=== PATIENT | male | born 1985 | race Caucasian/White ===

== ENCOUNTER 2022-10-25 10:41 | Emergency (ER) | payer OTHER ==
[2022-10-25 11:36] LABS: BASOPHILS # (AUTO) 0.1 10^3/uL (0.0-0.1); BASOPHILS % (AUTO) 1.1 %; EOSINOPHILS # (AUTO) 0.1 10^3/uL (0.0-0.7); EOSINOPHILS % (AUTO) 2.1 %; HCT - HEMATOCRIT 42.4 % (42.0-52.0); HGB - HEMOGLOBIN 14.2 g/dL (14.0-18.0); LYMPHOCYTES # (AUTO) 1.7 10^3/uL (1.5-3.5); LYMPHOCYTES % (AUTO) 31.9 %; MEAN CORPUSCULAR HEMOGLOBIN 31.4 pg (27.0-31.0); MEAN CORPUSCULAR HGB CONC 33.5 g/dL (32.0-36.0); MEAN CORPUSCULAR VOLUME 93.8 fL (80.0-94.0); MEAN PLATELET VOLUME 9.7 fL (7.4-11.4); MONOCYTES # (AUTO) 0.5 10^3/uL (0.0-1.0); MONOCYTES % (AUTO) 8.8 %; NEUTROPHILS % (AUTO) 55.9 %; PLT - PLATELET COUNT 299 10^3/uL (130-450); RED BLOOD COUNT 4.52 10^6/uL (4.70-6.10); RED CELL DISTRIBUTION WIDTH 12.3 % (12.0-15.0); WHITE BLOOD COUNT 5.3 x10^3/uL (4.8-10.8)
--- NOTE | 2022-10-25 11:36 | XRAY Report ---
PROCEDURE: Chest 1 View X-Ray INDICATIONS: Chest Pain TECHNIQUE: One view of the chest was acquired. COMPARISON: None. FINDINGS: Surgical changes and devices: None. Lungs and pleura: No pleural effusions or pneumothorax. Lungs are clear. Mediastinum: Mediastinal contours appear normal. Heart size is normal. Bones and chest wall: No suspicious bony lesions. Overlying soft tissues appear unremarkable. IMPRESSION: No acute cardiopulmonary process. Reviewed by: Jerardo Oconnor on 10/25/2022 11:35 AM PDT Approved by: Jerardo Oconnor on 10/25/2022 11:35 AM PDT Station ID: [id number]
[2022-10-25 11:49] LABS: ALBUMIN 4.7 g/dL (3.2-5.5); ALBUMIN/GLOBULIN RATIO 1.6 (1.0-2.2); BILIRUBIN,TOTAL 1.2 mg/dL (0.2-1.0); CALCIUM 9.4 mg/dL (8.5-10.3); CREATININE 0.7 mg/dL (0.6-1.2); POTASSIUM 4.4 mmol/L (3.5-5.0); TOTAL PROTEIN 7.7 g/dL (6.7-8.2)
--- NOTE | 2022-10-25 12:25 | ED Physician Documentation ---
History of Present Illness - Stated complaint Stated Complaint: CHEST PX,SWELLING - Chief complaint Chief Complaint: Cardiac - Additonal information Additional information: 36-year-old male presents emergency department for evaluation of substernal chest pain and chest pressure. Reports that he has began to have palpitations especially when laying in bed at night. Denies any exertional chest pain. No shortness of air. He has had no hemoptysis. His is here in the emergency department also seeking care for concerns of respiratory symptoms. Patient reports he has been stressed a lot recently [place]. He does have a history of hypertension for which she was previously on lisinopril but transition to losartan several weeks ago when he developed some generalized body swelling. That has fully resolved. Non-smoker. Review of Systems Constitutional: denies: Fever Cardiac: reports: Chest pain / pressure, Palpitations. denies: Pedal edema, C [place] pain Respiratory: reports: Reviewed and negative GI: reports: Reviewed and negative : reports: Reviewed and negative Skin: reports: Reviewed and negative Musculoskeletal: reports: Reviewed and negative Neurologic: reports: Reviewed and negative PD PAST MEDICAL HISTORY - Present Medications Home Medications: Ambulatory Orders Medication Instructions Recorded Confirmed Atorvastatin [Lipitor] 20 mg PO DAILY 10/25/22 10/25/22 FLUoxetine [PROzac] 10 mg PO DAILY 10/25/22 10/25/22 Losartan [Cozaar] 50 mg PO DAILY 10/25/22 10/25/22 - Allergies Allergies/Adverse Reactions: Allergies Allergy/AdvReac Type Severity Reaction Status Date / Time No Known Drug Allergies Allergy Verified 10/25/22 11:11 PD ED PE NORMAL - General General: Alert and oriented X 3, No acute distress - HEENT HEENT: Atraumatic - Neck Neck: Supple, no meningeal sign, No JVD - Cardiac Cardiac: RRR, No murmur, No gallop - Respiratory Respiratory: No respiratory distress, Clear bilaterally - Abdomen Abdomen: Normal bowel sounds, Soft, Non tender, Non distended - Back Back: No CVA TTP, No spinal TTP - Derm Derm: Normal color, Warm and dry, No rash - Extremities Extremities: No deformity - Neuro Neuro: Alert and oriented X 3, picture framer 2-12 intact Eye Opening: Spontaneous Motor: Obeys Commands Verbal: Oriented GCS Score: 15 Results - Vitals Vitals: Vital Signs - 24 hr 10/25/22 10/25/22 10/25/22 11:05 12:10 12:18 Temperature 36.9 C Heart Rate 73 89 Respiratory 16 18 18 Rate Blood Pressure 144/98 H 149/90 H O2 Saturation 100 99 Oxygen O2 Source Room air - EKG (time done) 1113 EKG releavant findings:: EKG personally interpreted by author of this note. Relevant findings are: Rate: Rate (enter#) (55) Rhythm: NSR [place]: Normal Intervals: Normal OR QRS: Normal Ischemia: Normal ST segments Compare to prior EKG: Old EKG unavailable Computer interpretation: Agree with computer - Labs Labs: Laboratory Tests 10/25/22 10/25/22 10/25/22 11:31 11:31 11:31 WBC 5.3 RBC 4.52 L Hgb 14.2 Hct 42.4 MCV 93.8 MCH 31.4 H MCHC 33.5 RDW 12.3 Plt Count 299 MPV 9.7 Neut # (Auto) 3.0 Lymph # (Auto) 1.7 [place] # (Auto) 0.5 Eos # (Auto) 0.1 Baso # (Auto) 0.1 Absolute Nucleated RBC 0.00 Nucleated RBC % 0.0 Sodium 138 Potassium 4.4 Chloride 102 Carbon Dioxide 28 Anion Gap 8.0 BUN 8 Creatinine 0.7 Estimated GFR (MDRD) 127 Glucose 108 H Calcium 9.4 Total Bilirubin 1.2 H AST 25 ALT 38 Alkaline Phosphatase 52 Troponin I High Sens < 2.3 L Total Protein 7.7 Albumin 4.7 Globulin 3.0 Albumin/Globulin Ratio 1.6 Lipase 31 - Rads (name of study) cxr Relevant Findings:: Final report received (No acute cardiopulmonary process) PD Medical Decision Making - ED course Complexity details: reviewed results, considered differential, d/w patient ED course: 36-year-old male checks in emergency department for evaluation of about 2 weeks intermittent substernal chest pain chest pressure with associated palpitations felt mostly at night when laying in bed. Said no cough or fevers. No syncope. Symptoms are not exertional. He was recently transition from lisinopril to losartan for management of hypertension after he developed some generalized body swelling. He is a non-smoker. On exam he appears remarkably well. Cardiopulmonary auscultation was without acute findings. While on the monitor in the room though for brief period of time, there was no ectopy noted. An EKG completed in the emergency department is without any ischemic findings. CBC electrolytes and troponin as interpreted by myself are without acute findings including no anemia, electrolyte imbalance. His troponin is also negative. Chest x-ray is without findings suggesting pneumonia, pleural effusion cardiomegaly. I discussed with the patient that the palpitations especially when present nocturnal and at night are typically benign. He may benefit from a Holter monitor for evaluation of arrhythmia or PVCs. He is scheduled to see a new PCP within the next month. Patient also admits to worsening anxiety since [place] and worry about his 's health. He does take floxetine. Patient feels better knowing that his labs and imaging and EKG are normal. He is encouraged to follow close with PCP. The usual emergent return precautions were discussed for worsening symptoms. Departure - Departure Disposition: 01 Home, Self Care Clinical Impression: Palpitations Chest pain Qualifiers: Chest pain type: unspecified Qualified Code(s): R07.9 - Chest pain, unspecified Condition: Stable Record reviewed to determine appropriate education?: Yes Comments: Aleksey was seen today in the emergency department because for the last several weeks you have been having some chest pain especially at night when laying full flat as well as some palpitations. While here in the emergency department your EKG was entirely normal. Your chest x-ray also showed no worrisome findings. Your CBC and electrolytes today were all essentially normal. Sometimes anxiety can cause your symptoms but I do recommend you follow closely with a primary care doctor. You may benefit from an outpatient Holter monitor or referral for an echocardiogram. Return to the emergency department should you develop any fainting episodes, have sudden severe chest pain or shortness of air.
[2022-10-25 12:43] VITALS: BP 131/87
== END 2022-10-25 12:43 | disposition home or self-care (01) ==
LOC: ED 10:41
DX: R07.89 Other chest pain (principal); R00.2 Palpitations
CPT/HCPCS: 36415; 80053; 83690; 84484; 85025; 93005; 99283; 99284

== ENCOUNTER 2022-12-13 10:05 | Outpatient (CLI) | payer OTHER ==
--- NOTE | 2022-12-13 10:45 | Sleep Patient Instructions ---
Sleep Center Visit Summary - Patient Visit Information Reason for Visit: Initial consult for evaluation of sleep disordered breathing and other sleep issues. - Patient Instructions Instructions Attached: Sleep Study, Sleep Clinic Visit, Sleep Study Home Monitor Additional Instructions: You will be completing a sleep study, either an in-lab polysomnography (PSG) or home sleep study (HST). You will follow-up in the sleep care office after the sleep study is completed to hear the results and talk about therapy, if needed. You will be called by our office staff to schedule this appointment, but you may contact us with any questions. - Clinic Information Contact: [facility] [address] [place] [email or web address] T: [phone]
--- NOTE | 2022-12-13 10:49 | SLEEP CARE CONSULTATION ---
Information from patient questionnaire entered by Nikko Godfrey. I have reviewed and concur with the information entered by Nikko Godfrey. This document represents the service I personally performed and the decisions made by me, Karon Finney ARNP. History of Present Illness Service Date and Time: 12/13/2022 1020 Reason for Visit: New patient Chief Complaint: reports: Snoring, Excessive daytime sleepiness Date of Onset: 10YRS Usual bedtime: 7PM Time it takes to fall asleep: 15MIN Snores at night: Yes Observed to quit breathing while asleep: No (not sure - notes that he jolts awake) Sleeps alone due to snoring: No Number of times waking at night: 3-5 Reasons for waking at night: reports: Snoring, Bathroom Toss, Turn, or Twitch while sleeping: Yes Recalls having dreams: Yes Usually gets out of bed at: 530AM Feels refreshed in the morning: No Morning headache: No Sleepy or fatigued during the day: Yes Ever fallen asleep while driving: No Takes day naps: Yes (40 mins when working, works at home; naps make him feel lethargic) Dreams during day naps: No Prior sleep studies: No Additional HPI information: I had the pleasure of seeing DANIEL ZAMORA today regarding the possibility of him having a sleep disorder. His current complaints are snoring and excessive daytime sleepiness. He states he is constantly a little tired. He does not wake up feeling refreshed. He has woke up with a "jolt" and possibly a gasp for air. He does sleep with head elevated because it seems to reduce snoring. His father has sleep apnea and uses a CPAP. 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 Patient is and lives in . Have you smoked in the past 12 months: No Years of smokin Quit date: 2014 Alcohol use: Yes Alcohol amount and frequency: 2BEERS PER WEEK Caffeine use: Yes Caffeine amount and frequency: 3CUPS COFFEE, daily Family History Family history of sleep disordered breathing: Yes Family Hx Sleep Apnea: Father: Snoring, Sleep apnea - Treated Allergies and Home Medications Known drug allergies: No Drug allergies reviewed: Yes Home medication list reviewed: Yes (see updated list in EMR) Allergy and home medication list: Allergies No Known Drug Allergies Allergy (Verified 12/12/22 13:42) Review of Systems Weight gain over past 5 years: regained 30 Weight loss over past 5 years: 50-60 Cardiovascular: reports: high blood pressure, palpitations Gastrointestinal: reports: heartburn Neurological: denies: headaches, head trauma Psychiatric: reports: anxiety Ear/Nose/Throat: reports: wisdom teeth removed. denies: injury to nose, tonsillectomy Musculoskeletal: reports: back pain Immunologic: denies: allergies to food or environment Physical Exam Vital signs obtained and entered by: NIKKO Sandhu MA Blood Pressure: 110/64 (LEFT ARM) Cuff size: regular Heart Rate: 58 O2 Saturation: 98 Height: 5 ft 11 in Weight: 207 lb 3.2 oz Body Mass Index: 28.9 BMI Classification: Overweight Neck circumference: 15.75 Mouth and throat: normal Soft palate: long Hard palate: normal Uvula: normal Uvula visualization: 100% Mallampati Class I Tongue: enlarged in size with teeth [place] on lateral edges Tonsils: small Neck: normal w/o lymphadenopathy or thyromegaly Heart: regular rate and rhythm Lungs: clear bilaterally Impression and Plan 1. Suspected Obstructive Sleep Apnea-Hypopnea Syndrome, as suggested by a history of loud and irregular snoring, gasping or choking in sleep, unrefreshed sleep, cognitive impairment, and excessive daytime sleepiness. Narrow oropharynx and obesity are common predisposing factors for obstructive sleep apnea-hypopnea syndrome. I recommend proceeding to polysomnography to confirm the diagnosis and to assess severity. If the patient has significant sleep disordered breathing, a manual CPAP titration study will also be performed to find the optimal treatment pressure. I informed the patient of what the sleep studies involve and after some discussion, obtained agreement to proceed. The pathophysiology of obstructive sleep apnea-hypopnea syndrome was discussed with the patient and health risks of cardiovascular and cerebrovascular disease if not treated. Risks of drowsy driving discussed in detail and patient advised to avoid long distance driving and to harness puller at the first sign of drowsiness. Patient agreed to plan. * Schedule polysomnography * Avoid long distance driving or driving when feeling sleepy. * Avoid alcohol, sedative and muscle relaxant around bedtime. * Attempt to lose weight. * Review instructions provided by trained office staff on how to prepare for the sleep study. * Return for follow-up after sleep study completed. Counseling Topics: Weight loss health impact Visit Type: In Office Time Spent with Patient (minutes): 30 Provider Statement: I spent 100% of the Face to Face Visit with the patient with greater than 50% spent counseling the patient and coordination of care.
[2022-12-13 10:53] VITALS: BP 110/64
== END 2022-12-13 10:06 | disposition home or self-care (01) ==
LOC: SC 10:05
PROVIDERS: ATTEND Nurse Practitioner Family
DX: G47.10 Hypersomnia, unspecified (principal); R06.83 Snoring; R06.81 Apnea, not elsewhere classified; R41.89 Other symptoms and signs involving cognitive functions and awareness; G47.8 Other sleep disorders; E66.3 Overweight; Z68.28 Body mass index [BMI] 28.0-28.9, adult; Z87.891 Personal history of nicotine dependence
CPT/HCPCS: 99203; 99212

== ENCOUNTER 2023-04-20 16:14 | Outpatient (CLI) | payer OTHER ==
--- NOTE | 2023-04-20 16:06 | SLEEP CARE CONSULTATION ---
Information from patient questionnaire entered by Nikko Godfrey. I have reviewed and concur with the information entered by Nikko Godfrey. This document represents the service I personally performed and the decisions made by me, Karon Finney ARNP. History of Present Illness Service Date and Time: 04/20/2023 1540 Previous diagnosis: Moderate, Obstructive Sleep Apnea-Hypopnea Syndrome AHI: 18.5 (02/09/23) Reason for follow up: first compliance Accompanied by: (RESMED) Equipment type: CPAP (ResMed Airsense 11, 02/2023) Equipment obtained from: [employer] (getting supplies) Mask style: Nasal Mask brand: [employer] (Eson 2) Backup mask available: No (will keep old mask when replaced) Last cushion change: 1 week Prior sleep studies: No Type of Sleep Study: Home sleep study (COMPLETED 02/09/23) HPI additional information: DANIEL ZAMORA was diagnosed to have moderate, AHI 18.5, obstructive sleep apnea-hypopnea syndrome and returns via video appointment today for CPAP therapy first compliance follow-up. Sleep Study - Results Type of Sleep Study: Home sleep study (COMPLETED 02/09/23) Prior sleep studies: No CPAP Compliance Data - Data Reviewed with Patient Average duration of nightly device use: 9 HRS 16 MINS Compliance rate %: 100 (03/09/23-04/07/23; 30/30 days used) Current pressure setting (cmH2O): 4-15 (median 6.8, avg 9.8, max 11.7) Average residual AHI: 1.5 Central apnea: 0.7 Obstructive apnea: 0.2 Average large leak: 5.9 L/min Subjective Patient concerns: reports: condensation in mask/hose (occasionally). denies: aerophagia, mask discomfort, air blowing in eyes, mask leak noise, nasal congestion, dry mouth, nose, throat, epistaxis Observed to snore while using device: No Current pressure setting perceived as: comfortable On therapy, patient: reports: sleeping better, awakening more refreshed, being more awake and alert during the day, more rested overall. denies: drowsiness while driving Initial [place] Sleepiness Scale score: 7 (12/13/22) Current [place] Sleepiness Scale score: 3 (04/20/23) Allergies and Home Medications Known drug allergies: No Drug allergies reviewed: Yes Home medication list reviewed: Yes (no changes) Allergy and home medication list: Allergies No Known Drug Allergies Allergy (Verified 04/19/23 14:20) Review of Systems Review of systems same as previous: Yes (NO CHANGE) Physical Exam Vital signs obtained and entered by: NIKKO Sandhu MA Height: 5 ft 11 in (PER PT) Weight: 207 lb (PER PT) Body Mass Index: 28.8 BMI Classification: Overweight Impression and Plan 1. Obstructive Sleep Apnea-Hypopnea Syndrome, moderate, with good treatment compliance and good apnea control. On CPAP therapy, the patient has better sleep quality and is more rested overall. Patient has significant improvement of their sleep apnea and is satisfied with current CPAP therapy. He has had occasional condensation around the seal of the mask. We discussed ways to reduce condensation and he voiced understanding. The patients pressure will be changed to autoCPAP 9-12 cmH20 to reflect pressure being used. Patient advised to contact me if pressure change is uncomfortable so that it can be adjusted. Goals for apnea control discussed. Patient's apnea severity and rationale for treatment to reduce apnea, improve sleep quality and reduce cardiovascular and cerebrovascular events was reviewed. I also reviewed the benefit of consistent device use of CPAP for hypertension and anxiety. 2. Overweight, unspecified. Currently patients BMI is 28.8. Obesity increases the risk of apnea, CPAP pressure requirements and overall health risks especially cardiovascular and diabetes. Thus patient is advised to lose weight. * Change auto CPAP pressure to 9-12 cmH2O * Notify me if snoring with mask or feeling that the pressure is too much or too little * Attempt to lose weight * Call this office if any problems using CPAP * Return for follow up in 1-2 months, or sooner if concerns arise Counseling Topics: Spare mask, Weight loss health impact Follow up with Sleep Care in: 1-2 months Visit Type: Telehealth Video Video Type: Doximity Patient Location: Home Location of Provider: Office Patient agrees and consents to this telehealth visit type: Yes Patient agrees to have their insurance billed: Yes Time Spent with Patient (minutes): 15 Provider Statement: I spent 100% of the Telehealth Video Call with the patient with greater than 50% spent counseling the patient and coordination of care.
== END 2023-04-20 16:15 | disposition home or self-care (01) ==
LOC: SC 16:14
PROVIDERS: ATTEND Nurse Practitioner Family
DX: G47.33 Obstructive sleep apnea (adult) (pediatric) (principal); E66.3 Overweight; Z68.28 Body mass index [BMI] 28.0-28.9, adult
CPT/HCPCS: 99212

== ENCOUNTER 2023-09-06 15:53 | Outpatient (CLI) | payer OTHER ==
--- NOTE | 2023-09-06 15:45 | SLEEP CARE CONSULTATION ---
Information from patient questionnaire entered by Nikko Godfrey. I have reviewed and concur with the information entered by Nikko Godfrey. This document represents the service I personally performed and the decisions made by , Karon Finney ARNP. History of Present Illness Service Date and Time: 09/06/2023 1520 Previous diagnosis: Moderate, Obstructive Sleep Apnea-Hypopnea Syndrome AHI: 18.5 (02/09/23) Reason for follow up: other (3 MONTH F/U) Equipment type: CPAP (ResMed Airsense 11, 02/2023) Equipment obtained from: [employer] ([employer]) Mask style: Nasal (Eson 2, med cushion) Backup mask available: Yes Last cushion change: 1 week Prior sleep studies: No Type of Sleep Study: Home sleep study (COMPLETED 02/09/23) HPI additional information: DANIEL ZAMORA was diagnosed to have moderate, AHI 18.5, obstructive sleep concrete pourer ea-hypopnea syndrome and returns via video appointment today for CPAP therapy three month follow-up. Sleep Study - Results Type of Sleep Study: Home sleep study (COMPLETED 02/09/23) Prior sleep studies: No CPAP Compliance Data - Data Reviewed with Patient Average duration of nightly device use: 9 HRS 11 MINS Compliance rate %: 100 (07/06/23-09/03/23; 60/60 days used) Current pressure setting (cmH2O): 9-12 Average residual AHI: 1.0 Central apnea: 0.5 Obstructive apnea: 0.2 Hypopnea: 0.3 Average large leak: 8.5 L/min Subjective Patient concerns: reports: mask leak noise (sometimes, just needs adjusting). denies: aerophagia, mask discomfort, air blowing in eyes, condensation in mask/hose, nasal congestion, dry mouth, nose, throat, epistaxis Observed to snore while using device: No Current pressure setting perceived as: comfortable On therapy, patient: reports: sleeping better, awakening more refreshed, being more awake and alert during the day, more rested overall. denies: drowsiness while driving Initial [place] Sleepiness Scale score: 7 (12/13/22) Current [place] Sleepiness Scale score: 4 (09/06/23) Allergies and Home Medications Known drug allergies: No Drug allergies reviewed: Yes Home medication list reviewed: Yes (no changes) Allergy and home medication list: Allergies No Known Drug Allergies Allergy (Verified 09/04/23 11:23) Review of Systems Review of systems same as previous: Yes (NO CHANGE) Physical Exam Vital signs obtained and entered by: NIKKO Sandhu MA Height: 5 ft 11 in (PER PT) Weight: 200 lb (PER PT) Body Mass Index: 27.8 BMI Classification: Overweight Impression and Plan 1. Obstructive Sleep Apnea-Hypopnea Syndrome, moderate, with good treatment compliance and good apnea control. On CPAP therapy, the patient has better sleep quality and is more rested overall. Patient has significant improvement of their sleep apnea and is satisfied with current CPAP therapy. Patient denies problems with oral dryness, nasal congestion, epistaxis, skin irritation or aerophagia. Patient's apnea severity and rationale for treatment to reduce apnea, improve sleep quality and reduce cardiovascular and cerebrovascular event s was reviewed. I also reviewed the benefit of consistent device use of CPAP for hypertension, anxiety. 2. Overweight, unspecified. Currently patients BMI is 27.8. Obesity increases the risk of apnea, CPAP pressure requirements and overall health risks especially cardiovascular and diabetes. Thus patient is advised to lose weight. * Continue auto CPAP pressure at 9-12 cmH2O * Notify me if snoring with mask or feeling that the pressure is too much or too little * Attempt to lose weight * Call this office if any problems using CPAP * Return for follow up in 12 months, or sooner if concerns arise Counseling Topics: Spare mask, Weight loss health impact Follow up with Sleep Care in: 6 months Visit Type: Telehealth Video Video Type: Doximity Patient Location: Home Location of Provider: Office Patient agrees and consents to this telehealth visit type: Yes Time Spent with Patient (minutes): 11 Provider Statement: I spent 100% of the Telehealth Video Call with the patient with greater than 50% spent counseling the patient and coordination of care.
== END 2023-09-06 15:54 | disposition home or self-care (01) ==
LOC: SC 15:53
PROVIDERS: ATTEND Nurse Practitioner Family
DX: G47.33 Obstructive sleep apnea (adult) (pediatric) (principal)